=== PATIENT | female | born 1965 | race Caucasian/White ===

== ENCOUNTER 2017-10-09 11:56 | Emergency (ER) | payer BC ==
[~2017-10-09] VITALS: Ht 160 cm; Wt 140.6 kg
[2017-10-09] MEDS ORDERED: GLUCAGON FOR INJ 1 MG VIAL IV ONE (12:45)
--- NOTE | 2017-10-09 16:10 | Diagnostic Imaging Report ---
History: Vitamins stuck in throat Comparison studies: None Technique: Axial images were obtained from the skull base to the thoracic inlet. Coronal and sagittal images reconstructed from the axial data. Intravenous contrast: None Findings: Evaluation of the neck is limited due to the absence of intravenous contrast. In spite of this limitation, Soft tissues: No abnormalities. No hyperdense foreign object in the oral or hypopharynx Small calcific densities of the right palatine tonsil, likely related to caesium. Lymph nodes: No radiographically significant adenopathy. Vessels: Cannot evaluate. Glands (thyroid, parotid and submandibular): Normal in size and symmetric. No masses. Orbits: No abnormalities. Paranasal sinuses: Clear. Temporal bones: No abnormalities. Skull base and facial bones: Intact. Cervical spine: Grossly patent canal and foramina. Sclerotic C3 vertebral body and clivus lesions, nonspecific IMPRESSION: 1. No hyperdense foreign object is seen 2. Nonspecific C3 vertebral body and clival sclerotic lesions, these may represent incidental infiltrative bone marrow process, recommend clinical correlation Signed by: DR Asad Lara M.D. on 10/09/2017 4:06 PM
[2017-10-09 16:42] VITALS: BP 149/65
[2017-10-16] MEDS ORDERED: FISH OIL 1,0001 EAC3 (09:25)
[2017-10-16] MEDS ORDERED: ONCE DAILY1 EACH (09:25)
== END 2017-10-09 16:48 | disposition home or self-care (01) ==
LOC: ER 12:07
DX: R09.89 Other specified symptoms and signs involving the circulatory and respiratory systems (principal)
CPT/HCPCS: 70490; 99283; J1610

== ENCOUNTER → 2017-10-18 | Day surgery (SDC) | payer BC ==
[~2017-10-18] MED LIST: FISH OIL 1,0001 EAC3; KETAMINE HCL INJ 50 MG/ML 10 ML VIAL ONE; LIDOCAINE HCL 2% LOCAL INJ 5 ML SDV VIAL INJ ONE; MIDAZOLAM HCL 2 MG/2 ML VIAL ONE; ONCE DAILY1 EACH; PROPOFOL IV EMULSION 10 MG/ML 50 ML VIAL ONE; SCOPOLAMINE 1.5 MG PATCH ONE
--- OUTSIDE RECORDS SUMMARY | 2017-10-18 11:48 | XMS REPORT ---
Author Author [facility] Address Unknown Phone Unavailable Care Team Providers Care Gang Saw Operator Name Role Phone JOSEPH MARTINEZ Unavailable Unavailable Problems This patient has no known problems. Allergies, Adverse Reactions, Alerts This patient has no known allergies or adverse reactions. Medications This patient has no known medications. Results Test Description Test Time Test Comments Text Results Atomic Results Result Comments CT SOFT TISSUE NECK WO [place] [address] Patient Name: ISSAC LEIGH MR #: [id number] : 1965 Age/Sex: 52/F Req #: [id number] Adm Physician: Ordered by: RACHEL WILCOX PSYCHIATRIC ASSISTANT Report #: [id number] Location: ER Room/Bed: Procedure: [id number] CT/CT SOFT TISSUE NECK WO Exam Date: 10/09/17 Exam Time: 1325 REPORT STATUS: Signed History: Vitamins stuck in throat Comparison studies: None Technique: Axial images were obtained from the skull base to the thoracic inlet. Coronal and sagittal images reconstructed from the axial data. Intravenous contrast: None Findings: Evaluation of the neck is limited due to the absence of intravenous contrast. In spite of this limitation, Soft tissues: No abnormalities. No hyperdense foreign object in the oral or hypopharynx Small calcific densities of the right palatine tonsil, likely related to caesium. Lymph nodes: No radiographically significant adenopathy. Vessels: Cannot evaluate. Glands (thyroid, parotid and submandibular): Normal in size and symmetric. No masses. Orbits: No abnormalities. Paranasal sinuses: Clear. Temporal bones: No abnormalities. Skull base and facial bones: Intact. Cervical spine: Grossly patent canal and foramina. Sclerotic C3 vertebral body and clivus lesions, nonspecific IMPRESSION: 1. No hyperdense foreign object is seen 2. Nonspecific C3 vertebral body and clival sclerotic lesions, these may represent incidental infiltrative bone marrow process, recommend clinical correlation Signed by: DR Asad Lara M.D. on 10/09/2017 4:06 PM Dictated By: ASAD CALDERA MD [id number] Transcribed By: LAURA on 10/09/17 1606 COPY TO: RACHEL WILCOX NP
--- OUTSIDE RECORDS SUMMARY | 2017-10-18 11:48 | XMS REPORT | Continuity of Care Document ---
Author Author [facility] Organization [facility] Address [address] [place] [address] Phone Unavailable Care Team Providers Care Ict Support Engineer Name Role Phone RICKEY LARA (LESVIA) PCP Insurance Providers Guarantor Issac Hsieh Address [address] [place] [address] Email [email or web address] [facility] Policy Number [id number] Subscriber's Name Joseph Hsieh Relationship 01 Advance Directives Directive Response Recorded Date/Time Does the patient have an advance directive? No 10/09/17 1:26pm If yes, is advance directive on file with [facility]? No 10/09/17 1:26pm If not on file with [facility] will patient provide a copy? No 10/09/17 1:26pm Do you have a Directive to Physician? No 10/09/17 1:26pm Do you have a Medical Power of Automotive Collision Repair Instructor? No 10/09/17 1:26pm Do you have an out of hospital Do Not Resuscitate Order? No 10/09/17 1:26pm Do you have any special needs we should be aware of? No 10/09/17 1:26pm Do you have a support person here with you today? Yes 10/09/17 1:26pm Did patient receive Notice of Privacy Practices? Yes 10/09/17 1:26pm Did patient receive patient rights and responsibilities? Yes 10/09/17 1:26pm Problems No problem information available. Medications No medication information available. Social History Smoking Status Start Date Stop Date Never Smoker Hospital Discharge Instructions No hospital discharge instruction information available. Plan of Care Discharge Date 10/09/17 4:48pm Disposition HOME, SELF-CARE Condition at Discharge Stable Forms Provided Work/School Excuse Prescriptions See Medication Section Referrals RICKEY LARA MD (NS) Order Date: Call for an appointment Address: [address] [place] [phone] ALEXIS MUSTAFA MD Address: [address] [place] [address] [address] [place] [address] Additional Instructions/Education Take medication as prescribed Follow up with GI and PCP as soon as possible Functional Status No functional status information available. Allergies, Adverse Reactions, Alerts No known allergies. Immunizations No immunization information available. Vital Signs Acute Vital Signs Vital Response Date/Time Pulse Pulse Rate (adult) 76 bpm (60 - 90) 10/09/2017 4:42pm Pulse Pulse Rate (adult) 76 bpm (60 - 90) 10/09/2017 4:42pm Respiratory Rate 16 bpm (12 - 24) 10/09/2017 4:42pm Blood Pressure 149/65 mm Hg 10/09/2017 4:42pm Blood Pressure 149/65 mm Hg 10/09/2017 4:42pm Height 5 ft 3 in 10/09/2017 12:00pm Weight 310 lb 10/09/2017 12:00pm Body Mass Index 54.9 kg/m^2 10/09/2017 12:00pm Results No relevant diagnostic test, laboratory data and/or discharge summary information available. Procedures Procedure Status Date Provider(s) Computed tomography of soft tissues of neck without contrast Active 10/09/17 RACHEL WILCOX NP Encounters Encounter Location Arrival/Admit Date Discharge/Depart Date Attending Provider Departed Emergency Room [facility] 10/09/17 12:07pm 10/09 4:48pm JOSEPH MARTINEZ MD
== END | disposition home or self-care (01) ==
LOC: OR 11:46
PROVIDERS: ATTEND Internal Medicine Gastroenterology
DX: Z12.11 Encounter for screening for malignant neoplasm of colon (principal); D12.3 Benign neoplasm of transverse colon; K29.50 Unspecified chronic gastritis without bleeding; K22.2 Esophageal obstruction; K20.0 Eosinophilic esophagitis; K63.89 Other specified diseases of intestine; K64.8 Other hemorrhoids; E66.01 Morbid (severe) obesity due to excess calories; G47.33 Obstructive sleep apnea (adult) (pediatric); Z01.810 Encounter for preprocedural cardiovascular examination; Z68.43 Body mass index [BMI] 50.0-59.9, adult; Z96.653 Presence of artificial knee joint, bilateral; Z80.0 Family history of malignant neoplasm of digestive organs
CPT/HCPCS: 43239; 43450; 45384; 93005; J2001; J2250; 45380